=== PATIENT | male | born 1970 | race Caucasian/White ===

== ENCOUNTER 2016-12-01 09:33 | Emergency (ER) | payer OTHER ==
[~2016-12-01] VITALS: Ht 175.2 cm; Wt 74.8 kg
[2016-12-01] MEDS ORDERED: TOBREX OPHTH S2.5 ML OPH (09:45)
== END 2016-12-01 09:56 | disposition home or self-care (01) ==
LOC: ED 09:33
DX: T15.02XA Foreign body in cornea, left eye, initial encounter (principal); F17.200 Nicotine dependence, unspecified, uncomplicated; X58.XXXA Exposure to other specified factors, initial encounter; Y93.89 Activity, other specified; Y92.89 Other specified places as the place of occurrence of the external cause; Y99.9 Unspecified external cause status

== ENCOUNTER 2018-01-31 18:04 | Emergency (ER) | payer SELFPAY ==
[~2018-01-31 18:04] MED LIST: TOBREX OPHTH S2.5 ML OPH
[2018-01-31] MEDS ORDERED: KEFLEX500 M1 PO (19:23)
== END 2018-01-31 19:45 | disposition home or self-care (01) ==
LOC: ED 18:04
DX: S81.802A Unspecified open wound, left lower leg, initial encounter (principal); Z88.0 Allergy status to penicillin; W34.00XA Accidental discharge from unspecified firearms or gun, initial encounter; Y93.89 Activity, other specified; Y92.89 Other specified places as the place of occurrence of the external cause; Y99.9 Unspecified external cause status

== ENCOUNTER 2019-02-13 19:44 | Emergency (ER) | payer SELFPAY ==
[~2019-02-13 19:44] MED LIST changes: +KEFLEX500 M1 PO
== END 2019-02-13 19:50 ==
LOC: ED 19:44
DX: T50.991A Poisoning by other drugs, medicaments and biological substances, accidental (unintentional), initial encounter (principal); Z88.0 Allergy status to penicillin; Y92.89 Other specified places as the place of occurrence of the external cause